=== PATIENT | female | born 1960 | race Caucasian/White ===

== ENCOUNTER 2018-07-29 18:16 | Emergency (ER) | payer MEDICAID ==
[~2018-07-29] VITALS: Ht 152.4 cm; Wt 67.1 kg
[2018-07-29 18:30] VITALS: Ht 152.4 cm; Wt 67.1 kg
[2018-07-29 21:52] LABS: BASOPHIL % 0.4 % (0-2); PLATELET COUNT 256 x10^3mcL (130-400); RED CELL DISTRIBUTION WIDTH 12.9 % (11.5-14.5)
[2018-07-29 22:20] LABS: CALCIUM 9.3 mg/dL (8.5-10.1); CARBON DIOXIDE 29.3 mmol/L (21-32); CHLORIDE SERUM 105 mmol/L (98-107); CREATININE SERUM 0.7 mg/dL (0.6-1.0); GFR1 > 60 mL/min; GLUCOSE SERUM 107 mg/dL (74-106); POTASSIUM SERUM 4.4 mmol/L (3.5-5.1); SODIUM SERUM 142 mmol/L (136-145)
[2018-07-29 22:24] LABS: ALBUMIN 3.9 g/dL (3.4-5.0); ALKALINE PHOSPHATASE 95 U/L (46-116); ALT/SGPT 55 U/L (14-59); AST/SGOT 32 U/L (15-37); BILIRUBIN TOTAL 0.31 mg/dL (0.20-1.00)
[2018-07-30 00:15] VITALS: BP 150/83
== END 2018-07-30 00:15 | disposition home or self-care (01) ==
LOC: ED 18:16
PROVIDERS: Emergency Medicine
DX: M25.512 Pain in left shoulder (principal); R51 Headache; E78.00 Pure hypercholesterolemia, unspecified
CPT/HCPCS: 36415; J1885; Q0092